=== PATIENT | male | born 1995 | race Caucasian/White ===

== ENCOUNTER 2021-09-14 05:34 | Emergency (ER) | payer OTHER ==
--- NOTE | 2021-09-14 06:28 | ED ---
ENT HPI - General Chief complaint: Dental/Oral Stated complaint: Jaw Pain Time Seen by Provider: 09/14/21 06:00 Source: patient, RN notes reviewed Mode of arrival: ambulatory - History of Present Illness Initial comments: This is a 26-year-old male who presents the emergency department for left-sided jaw pain and swelling. States that this morning he woke up with the pain. It is very painful to the touch. Denies sore throat or toothache. He had a viral upper respiratory illness 1 to 2 weeks ago with coughing and congestion, however that has since resolved. He has difficulty opening his mouth all the way and has not tried eating this morning. He has never had similar symptoms in the past. Denies any fevers, chills, ear pain, difficulty hearing, chest pain, or shortness of breath. MD complaint: other (jaw pain) Onset/Timin -: hour(s) Worsens with: movement - Related Data Previous Rx's Medication Instructions Recorded Amoxicillin 875 mg PO Q12HR 10 Days #20 tablet 09/14/21 Allergies Allergy/AdvReac Type Severity Reaction Status Date / Time No Known Allergies Allergy Verified 09/14/21 05:42 Review of Systems ROS Statement: Those systems with pertinent positive or pertinent negative responses have been documented in the HPI. ROS Other: All systems not noted in ROS Statement are negative. Constitutional: Denies: fever, chills ENT: Denies: ear pain, throat pain, congestion Respiratory: Denies: cough, dyspnea Cardiovascular: Denies: chest pain, palpitations Gastrointestinal: Denies: abdominal pain, nausea, vomiting, diarrhea Genitourinary: Denies: urgency, dysuria Skin: Denies: rash Neurological: Denies: headache Past Medical History Past Medical History: No Reported History History of Any Multi-Drug Resistant Organisms: None Reported Past Surgical History: No Surgical Hx Reported Smoking Status: Vaper Past Alcohol Use History: Occasional Past Drug Use History: None Reported General Exam Limitations: no limitations General appearance: alert, in no apparent distress Head exam: Present: atraumatic, normocephalic, normal inspection ENT exam: Present: normal exam, normal oropharynx, mucous membranes moist, TM's normal bilaterally, normal external ear exam Neck exam: Present: tenderness (left submandibular lymphnode), lymphadenopathy (left submandibular ) Respiratory exam: Present: normal lung sounds bilaterally. Absent: respiratory distress, wheezes, rales, rhonchi, stridor Cardiovascular Exam: Present: regular rate, normal rhythm, normal heart sounds. Absent: systolic murmur, diastolic murmur, rubs, gallop, clicks Neurological exam: Present: alert, oriented X3, CN II-XII intact Psychiatric exam: Present: normal affect, normal mood Skin exam: Present: warm, dry, intact, normal color. Absent: rash Course Vital Signs 09/14/21 05:40 Temperature 98.7 F Pulse Rate 86 Respiratory 16 Rate Blood Pressure 132/74 O2 Sat by Pulse 99 Oximetry Medical Decision Making - Medical Decision Making This is a 26-year-old male who presents to emergency department for left-sided jaw pain and swelling. Physical exam consistent with a submandibular lymphadenopathy. Dr. Angel evaluated the patient with me and advised that lymphadenopathy often occurs in response to an infection. Will place the patient on a course of Amoxicillin. He is advised to follow-up with his primary care provider in 2-3 weeks if the symptoms to not improve, as he'll need an ultrasound of the lymph node. Return precautions reviewed in depth, the patient is instructed to return to the emergency department with any new, worsening, or concerning symptoms. Patient verbalized understanding. This case was discussed in detail with the attending ED physician. Presentation, findings, and treatment plan discussed in detail as well. Disposition Clinical Impression: Lymphadenopathy of head and neck Disposition: HOME SELF-CARE Instructions (If sedation given, give patient instructions): Lymphadenopathy (ED) Additional Instructions: Return to the emergency department with any new, worsening, or concerning sympto ms. Take the antibiotic as prescribed for 10 days. Follow up in 2-3 weeks for ultrasound if symptoms do not improve. Prescriptions: Amoxicillin 875 mg PO Q12HR 10 Days #20 tablet Is patient prescribed a controlled substance at d/c from ED?: No Referrals: None,Stated [Primary Care Provider] - 1-2 days
[2021-09-14 06:49] VITALS: BP 119/63; PULSE 57; RESP 18; TEMP 98.2
== END 2021-09-14 06:49 | disposition home or self-care (01) ==
LOC: EC 05:34
DX: R59.1 Generalized enlarged lymph nodes (principal); F17.290 Nicotine dependence, other tobacco product, uncomplicated
CPT/HCPCS: 99283

== ENCOUNTER 2023-10-27 17:49 | Emergency (ER) | payer OTHER ==
[2023-10-27 18:27] LABS: ALT 62 U/L (4-49); AST 55 U/L (17-59); African American GFR (CKD) >90 (>60 ml/min/1.73 sqM); Albumin 4.9 g/dL (3.5-5.0); Alkaline Phosphatase 69 U/L (38-126); Amylase 57 U/L (30-110); Anion Gap 9 mmol/L; Blood Urea Nitrogen 16 mg/dL (9-20); Calcium 9.6 mg/dL (8.4-10.2); Carbon Dioxide 25 mmol/L (22-30); Chloride 107 mmol/L (98-107); Glucose 105 mg/dL (74-99); Lipase 93 U/L (23-300); Non-African American GFR(CKD) >90 (>60 ml/min/1.73 sqM); Potassium 4.1 mmol/L (3.5-5.1); Sodium 141 mmol/L (137-145); Total Bilirubin 0.6 mg/dL (0.2-1.3); Total Protein 7.5 g/dL (6.3-8.2)
[2023-10-27 18:28] LABS: Basophils % (A) 1 %; Eosinophils # (A) 0.4 k/uL (0-0.7); Eosinophils % (A) 5 %; HCT 51.6 % (39.0-53.0); Lymphocytes % (A) 39 %; MCH 28.7 pg (25.0-35.0); Mean Platelet Volume 7.4; Monocytes # (A) 0.3 k/uL (0-1.0); Monocytes % (A) 4 %; Neutrophils # (A) 3.9 k/uL (1.3-7.7); Neutrophils % (A) 51 %; Platelet Count 287 k/uL (150-450); RBC 5.93 m/uL (4.30-5.90); RDW 13.2 % (11.5-15.5); WBC 7.7 k/uL (3.8-10.6)
--- NOTE | 2023-10-27 19:46 | ED ---
Abdominal Pain HPI - General Chief Complaint: Abdominal Pain Stated Complaint: abd pain Time Seen by Provider: 10/27/23 18:36 Source: patient Mode of arrival: ambulatory Limitations: no limitations - History of Present Illness Initial Comments: 28-year-old male presenting to the ED with complaints of abdominal pain. Patient states approximately an hour prior to arrival had episode of abdominal pain. Reports that he was looking at new cars when he had sudden onset of sharp right upper quadrant abdominal pain with associated nausea, no vomiting. Rep orts that his last meal was approximately 12 PM. No changes in bowel or bladder habits. Denies fever or chills at this time. Reports no prior abdominal surgical history. At this time, patient reports pain and nausea are relieved. No chest pain or shortness of breath. No other complaints at this time. - Related Data Previous Rx's Medication Instructions Recorded Amoxicillin 875 mg PO Q12HR 10 Days #20 tablet 09/14/21 Allergies Allergy/AdvReac Type Severity Reaction Status Date / Time No Known Allergies Allergy Verified 10/27/23 17:55 Review of Systems ROS Statement: Those systems with pertinent positive or pertinent negative responses have been documented in the HPI. ROS Other: All systems not noted in ROS Statement are negative. Past Medical History Past Medical History: No Reported History History of Any Multi-Drug Resistant Organisms: None Reported Past Surgical History: No Surgical Hx Reported Past Psychological History: No Psychological Hx Reported Smoking Status: Vaper Past Alcohol Use History: Occasional Past Drug Use History: None Reported General Exam Limitations: no limitations General appearance: alert, in no apparent distress Eye exam: Present: normal appearance Neck exam: Present: normal inspection Respiratory exam: Present: normal lung sounds bilaterally Cardiovascular Exam: Present: regular rate GI/Abdominal exam: Present: soft (No tenderness to palpation. No rebound guarding or rigidity. Negative [place] sign. No CVA tenderness to percussion bilaterally.) Neurological exam: Present: alert, oriented X3 Skin exam: Present: warm, dry Course Vital Signs 10/27/23 17:52 Temperature 97.6 F Pulse Rate 88 Respiratory 18 Rate Blood Pressure 117/77 O2 Sat by Pulse 100 Oximetry Medical Decision Making - Medical Decision Making Was pt. sent in by a medical professional or institution (, PA, COMPUTER METHODS ANALYST, urgent care, hospital, or shelter...) When possible be specific @ -No Did you speak to anyone other than the patient for history (EMS, parent, family, police, friend...)? What history was obtained from this source @ -No Did you review nursing and triage notes (agree or disagree)? Why? @ -I reviewed and agree with nursing and triage notes Were old charts reviewed (outside hosp., previous admission, EMS record, old EKG, old radiological studies, urgent care reports/EKG's, shelter records)? Report findings @ -No old charts were reviewed Differential Diagnosis (chest pain, altered mental status, abdominal pain women, abdominal pain men, vaginal bleeding, weakness, fever, dyspnea, syncope, headache, dizziness, GI bleed, back pain, seizure, CVA, palpatations, mental health, musculoskeletal)? @ -Differential Abdominal Pain Men: Appendicitis, cholecystitis, diverticulosis, ischemic bowel, pancreatitis, hepatitis, UTI, gastroenteritis, AAA, incarcerated hernia, bowel obstruction, constipation, inflammatory bowel, hepatitis, peptic ulcer disease, splenic infarction, perforated viscus, testicular torsion, this is not meant to be an all-inclusive list EKG interpreted by me (3pts min.). @ -None X-rays interpreted by me (1pt min.). @ -None done CT interpreted by me (1pt min.). @ -None done U/S interpreted by me (1pt. min.). @ -Ultrasound interpreted me showing cholelithiasis however no suspicious changes for acute cholecystitis What testing was considered but not performed or refused? (CT, X-rays, U/S, labs)? Why? @ -None What meds were considered but not given or refused? Why? @ -None Did you discuss the management of the patient with other professionals (professionals i.e. , PA, COMPUTER METHODS ANALYST, lab, RT, psych nurse, child protective services social worker, commercial leasing manager, teacher, founder and chief technical officer, case managers)? Give summary @ -No Was smoking cessation discussed for >3mins.? @ -No Was critical care preformed (if so, how long)? @ -No Were there social determinants of health that impacted care today? How? (Homelessness, low income, unemployed, alcoholism, drug addiction, transportation, low edu. Level, literacy, decrease access to med. care, long-term, rehab)? @ -No Was there de-escalation of care discussed even if they declined (Discuss DNR or withdrawal of care, Hospice)? DNR status @ -No What co-morbidities impacted this encounter? (DM, HTN, Smoking, COPD, CAD, Cancer, CVA, ARF, Chemo, Hep., AIDS, mental health diagnosis, sleep apnea, morbid obesity)? @ -None Was patient admitted / discharged? Hospital course, mention meds given and route, prescriptions, significant lab abnormalities, going to OR and other pertinent info. @ -Discharge 28-year-old male presenting to the ED with episode of right upper quadrant pain with associated nausea, no vomiting lasting approximately 45 minutes. Laboratory studies reviewed. Labs including CBC, CMP, amylase, lipase largely unremarkable. Ultrasound was performed which showed cholelithiasis with no suspicious changes for acute cholecystitis. At this time symptoms are resolved. Vital signs stable, afebrile. Discharged home in stable condition with referral to see general surgery. Undiagnosed new problem with uncertain prognosis? @ -No Drug Therapy requiring intensive monitoring for toxicity (Heparin, Nitro, In sulin, Cardizem)? @ -No Were any procedures done? @ -No Diagnosis/symptom? @ -Cholelithiasis Acute, or Chronic, or Acute on Chronic? @ -Acute Uncomplicated (without systemic symptoms) or Complicated (systemic symptoms)? @ -Uncomplicated Side effects of treatment? @ -No Exacerbation, Progression, or Severe Exacerbation? @ -No Poses a threat to life or bodily function? How? (Chest pain, USA, OR, pneumonia, PE, COPD, DKA, ARF, appy, cholecystitis, CVA, Diverticulitis, Homicidal, Suicidal, threat to staff... and all critical care pts) @ -No - Lab Data Result diagrams: 10/27/23 18:10 10/27/23 18:10 Lab Results 10/27/23 10/27/23 Range/Units 18:10 18:10 WBC 7.7 (3.8-10.6) k/uL RBC 5.93 H (4.30-5.90) m/uL Hgb 17.0 (13.0-17.5) gm/dL Hct 51.6 (39.0-53.0) % MCV 87.0 (80.0-100.0) fL MCH 28.7 (25.0-35.0) pg MCHC 33.0 (31.0-37.0) g/dL RDW 13.2 (11.5-15.5) % Plt Count 287 (150-450) k/uL MPV 7.4 Neutrophils % 51 % Lymphocytes % 39 % Monocytes % 4 % Eosinophils % 5 % Basophils % 1 % Neutrophils # 3.9 (1.3-7.7) k/uL Lymphocytes # 3.0 (1.0-4.8) k/uL Monocytes # 0.3 (0-1.0) k/uL Eosinophils # 0.4 (0-0.7) k/uL Basophils # 0.0 (0-0.2) k/uL Sodium 141 (137-145) mmol/L Potassium 4.1 (3.5-5.1) mmol/L Chloride 107 (98-107) mmol/L Carbon Dioxide 25 (22-30) mmol/L Anion Gap 9 mmol/L BUN 16 (9-20) mg/dL Creatinine 0.77 (0.66-1.25) mg/dL Est GFR (CKD-EPI)AfAm >90 (>60 ml/min/1.73 sqM) Est GFR (CKD-EPI)NonAf >90 (>60 ml/min/1.73 sqM) Glucose 105 H (74-99) mg/dL Calcium 9.6 (8.4-10.2) mg/dL Total Bilirubin 0.6 (0.2-1.3) mg/dL AST 55 (17-59) U/L ALT 62 H (4-49) U/L Alkaline Phosphatase 69 (38-126) U/L Total Protein 7.5 (6.3-8.2) g/dL Albumin 4.9 (3.5-5.0) g/dL Amylase 57 (30-110) U/L Lipase 93 (23-300) U/L Disposition Clinical Impression: Cholelithiasis Disposition: HOME SELF-CARE Condition: Good Instructions (If sedation given, give patient instructions): Gallstones (ED), Cholecystitis (ED) Additional Instructions: Please return to the Emergency Department if symptoms worsen or any other concerns. Please follow-up with general surgery and your primary care provider. Is patient prescribed a controlled substance at d/c from ED?: No Referrals: None,Stated [Primary Care Provider] - 1-2 days Davey Veliz MD [Medical Doctor] - 1-2 days Ellie Tapia MD [STAFF PHYSICIAN] - 1-2 days Time of Disposition: 20:45
--- NOTE | 2023-10-27 20:11 | US ---
EXAMINATION TYPE: US gallbladder DATE OF EXAM: 10/27/2023 COMPARISON: NONE CLINICAL INDICATION: Male, 28 years old with history of RUQ pain; RUQ pain TECHNIQUE: Multiple sonographic images of the right upper quadrant are obtained. FINDINGS: EXAM MEASUREMENTS: Liver Length: 16.6 cm Gallbladder Wall: 0.3 cm CBD: 0.5 cm Right Kidney: 11.9 x 5.6 x 5.1 cm SALES EXPERT NOTES:*Limitations due to overlying bowel gas Pancreas: Obscured by bowel gas Liver: best seen intercostally, appears wnl as visualized Gallbladder: stones with possible sludge Evidence for sonographic [place]'s sign: no CBD: limited evaluation, appears wnl Right Kidney: no evidence of hydronephrosis IMPRESSION: 1. Mild fatty infiltration of liver with minimal hepatomegaly. 2. Cholelithiasis. No suspicious changes for acute cholecystitis.
[2023-10-27] MEDS: ONDANSETRON 4 MG ODT STARTER PACK 2 TAB BTL PO STA (21:23)
[2023-10-27 21:29] VITALS: BP 118/76; PULSE 76; RESP 16; TEMP 98.5
== END 2023-10-27 21:24 | disposition home or self-care (01) ==
LOC: EC 17:49
DX: K80.20 Calculus of gallbladder without cholecystitis without obstruction (principal); F17.290 Nicotine dependence, other tobacco product, uncomplicated
CPT/HCPCS: 36415; 80053; 82150; 83690; 85025; 76705; 99284; S0119